=== PATIENT | female | born 1950 | race Caucasian/White ===

== ENCOUNTER 2017-03-12 02:05 | Emergency (ER) | payer BC ==
[~2017-03-12 02:05] MED LIST: ASPIRIN EC81 MG PO; ASPIRIN325 MG PO; NEURONTIN300 MG PO; NICOTINE TRANSD14 MG TOP; NICOTINE TRANSD21 MG TOP; POLYETHYLENE GL17 GM PO; PREDNISONE20 MG PO; TENORMIN25 MG PO
== END 2017-03-12 04:15 | disposition home or self-care (01) ==
LOC: ER 02:05
DX: S10.11XA Abrasion of throat, initial encounter (principal); J44.9 Chronic obstructive pulmonary disease, unspecified; F41.9 Anxiety disorder, unspecified; F17.210 Nicotine dependence, cigarettes, uncomplicated; Z79.82 Long term (current) use of aspirin; Z79.899 Other long term (current) drug therapy

== ENCOUNTER 2017-06-23 17:49 | Inpatient (IN) | payer MEDICARE, BC ==
[~2017-06-23] VITALS: Ht 154.9 cm; Wt 52.6 kg
--- NOTE | 2017-06-26 17:10 | NUR ---
1645: REPORT CALLED TO HAKEEM DICKERSON 3RD FLOOR.
--- NOTE | 2017-06-26 17:12 | NUR ---
1700: PATIENT TRANSPORTED TO 3RD FLOOR TO ROOM 314
--- NOTE | 2017-06-26 18:20 | NUR ---
1700- PT ARRIVED TO FLOOR VIA BED ACCOMPANIED BY STAFF. NO S/S OF DISTRESS. PT SLEEPING. CALL GÓMEZ WITHIN REACH. NEPHEW AT BEDSIDE.
== END 2017-06-27 13:00 | disposition swing bed (61) | DRG 896 ==
LOC: ER 17:49 → MED 20:53 → ICU 20:53 → MED 06-26 17:02
PROVIDERS: ADMIT Internal Medicine Cardiovascular Disease
DX: F10.239 Alcohol dependence with withdrawal, unspecified (principal); J18.9 Pneumonia, unspecified organism; K86.0 Alcohol-induced chronic pancreatitis; I47.1 Supraventricular tachycardia; E83.42 Hypomagnesemia; E87.6 Hypokalemia; M35.3 Polymyalgia rheumatica; R74.9 Abnormal serum enzyme level, unspecified; K82.9 Disease of gallbladder, unspecified; R53.1 Weakness; F17.210 Nicotine dependence, cigarettes, uncomplicated; Y90.8 Blood alcohol level of 240 mg/100 ml or more; G62.9 Polyneuropathy, unspecified; I48.91 Unspecified atrial fibrillation; Z79.82 Long term (current) use of aspirin; Z79.01 Long term (current) use of anticoagulants; Z79.899 Other long term (current) drug therapy
CPT/HCPCS: 36415; 51703; 80307; 96365; 96367; 96375; 97161-GP; 97166; G0480; J0456; J0696; J1650; J1885; J2060